=== PATIENT | female | born 1970 | race Caucasian/White ===

== ENCOUNTER → 2022-06-22 09:15 | Outpatient (CLI) | payer OTHER, SELFPAY ==
[2022-06-22 10:12] LABS: Add Manual Diff / Slide Review NO; Basophils Absolute Auto 0 /uL (0-100); Basophils Percent Auto 0.5 % (0-2); Eosinophils Absolute Auto 100 /uL (0-450); Hematocrit 38.5 % (36-46); Hemoglobin 12.9 g/dL (12.0-16.0); Lymphocytes Absolute Auto 2100 /uL (1100-4500); Lymphocytes Percent Auto 33.5 % (25-40); Mean Corpuscular HGB Conc 33.4 % (30-36); Mean Corpuscular Hemoglobin 28.6 PG (26-34); Mean Corpuscular Volume 85.4 fL (80-100); Monocytes Absolute Auto 600 /uL (0-900); Monocytes Percent Auto 9.2 % (3-14); Neutrophils Absolute Auto 3500 /uL (1500-7000); Neutrophils Percent Auto 54.8 % (50-75); Platelet Count 263 X10^3/uL (150-400); Red Blood Cell Count 4.51 X10^6/uL (4.0-5.2); Red Cell Distribution Width 13.8 % (11.6-14.8); White Blood Cell Count 6.3 X10^3/uL (4.5-11.0)
[2022-06-22 10:20] LABS: Hemoglobin A1C% w Est Avg Glu 7.8 % (4.0-6.0)
[2022-06-22 10:31] LABS: Alanine Aminotransferase 35 IU/L (<35); Albumin 4.2 g/dL (3.5-5.0); Albumin Globulin Ratio 1.3 (1.0-2.8); Alkaline Phosphatase 85 U/L (38-126); Aspartate Aminotransferase 23 IU/L (14-36); BUN Creatinine Ratio 21.4 (6-22); Bilirubin Total 0.3 mg/dL (0.2-1.3); Blood Urea Nitrogen 15 mg/dL (7-17); Calcium 8.8 mg/dL (8.4-10.2); Carbon Dioxide 25 mmol/L (22-32); Chloride 104 mmol/L (98-107); Cholesterol 181 mg/dL (140-199); Estimated Glomerular Filt Rate > 60 mL/min (>60); Globulin 3.2 g/dL (1.7-4.1); Glucose 169 mg/dL (70-100); HDL Cholesterol 46 mg/dL (40-60); HEMOLYSIS < 15 (0-50); LDL Cholesterol Calculated 100 mg/dL (<100); Potassium 3.9 mmol/L (3.4-5.1); Sodium 138 mmol/L (137-145); Total Protein 7.4 g/dL (6.3-8.2); Triglycerides 175 mg/dL (35-150)
[2022-06-22 10:42] LABS: Erythrocyte Sedimentation Rate 16 MM/HR (0-20)
[2022-06-22 11:01] LABS: TSH w/ Reflex to FT4 3.29 uIU/mL (0.47-4.68)
== END ==
PROVIDERS: PCP Family Medicine; Referring Provider Family Medicine; Visit Provider Family Medicine
DX: E11.9 Type 2 diabetes mellitus without complications (principal); E78.00 Pure hypercholesterolemia, unspecified; F34.1 Dysthymic disorder; I10 Essential (primary) hypertension; M32.9 Systemic lupus erythematosus, unspecified; Z00.00 Encounter for general adult medical examination without abnormal findings; Z80.3 Family history of malignant neoplasm of breast
CPT/HCPCS: 36415; 80053; 80061; 83036; 84443; 85025; 85651

== ENCOUNTER → 2022-07-13 09:38 | Outpatient (CLI) | payer OTHER, SELFPAY ==
--- NOTE | 2022-07-13 09:39 | DI.MG.S_ITS ---
BILATERAL DIGITAL SCREENING MAMMOGRAM 3D/2D WITH CAD: 07/13/2022 CLINICAL: Routine screening. Family history of breast cancer. No prior exams were available for comparison. There are scattered areas of fibroglandular density in both breasts (category b / 25%-50% glandular tissue). Current study was also evaluated with a Computer Aided Detection (CAD) system. There is a biopsy clip in the left breast. No significant masses, calcifications, or other findings are seen in either breast. IMPRESSION: NEGATIVE There is no mammographic evidence of malignancy. A 1 year screening mammogram is recommended. This exam was interpreted at Station ID: [id number]. NOTE: For mammograms, a report in lay terms will be sent to the patient. Approximately 15% of breast malignancies will not be visualized mammographically. In the management of a palpable breast mass, a negative mammogram must not discourage biopsy of a clinically suspicious lesion. Electronically Signed By: Too Guerrero M.D., jr/eliud:07/13/2022 14:35:29 letter sent: Normal Exam ACR BI-RADS Category 1: Negative [id number]
[2022-07-13 10:26] LABS: Hemoglobin A1C% w Est Avg Glu 8.1 % (4.0-6.0)
[2022-07-13 10:43] LABS: Alanine Aminotransferase 35 IU/L (<35); Albumin 4.2 g/dL (3.5-5.0); Albumin Globulin Ratio 1.3 (1.0-2.8); Alkaline Phosphatase 90 U/L (38-126); Aspartate Aminotransferase 22 IU/L (14-36); BUN Creatinine Ratio 27.4 (6-22); Bilirubin Total 0.4 mg/dL (0.2-1.3); Blood Urea Nitrogen 20 mg/dL (7-17); Calcium 9.6 mg/dL (8.4-10.2); Carbon Dioxide 26 mmol/L (22-32); Chloride 100 mmol/L (98-107); Estimated Glomerular Filt Rate > 60 mL/min (>60); Globulin 3.3 g/dL (1.7-4.1); Glucose 233 mg/dL (70-100); HEMOLYSIS < 15 (0-50); Potassium 4.5 mmol/L (3.4-5.1); Sodium 135 mmol/L (137-145); Total Protein 7.5 g/dL (6.3-8.2)
[2022-07-13 10:47] LABS: Creatinine Urine Random 89.4 mg/dL
[2022-07-13 10:49] LABS: Microalbumi Creatinin Ratio Ur 16.7 ug/mg CR (<30); Microalbumin Urine Random 1.5 mg/dL (0-1.6)
== END ==
PROVIDERS: PCP Family Medicine; Referring Provider Family Medicine; Visit Provider Family Medicine
DX: Z12.31 Encounter for screening mammogram for malignant neoplasm of breast (principal); Z80.3 Family history of malignant neoplasm of breast; Z00.00 Encounter for general adult medical examination without abnormal findings; M32.9 Systemic lupus erythematosus, unspecified; I10 Essential (primary) hypertension; F34.1 Dysthymic disorder; E11.9 Type 2 diabetes mellitus without complications; E78.00 Pure hypercholesterolemia, unspecified
CPT/HCPCS: 36415; 77063; 77067; 80053; 82043; 82570; 83036

== ENCOUNTER → 2022-10-26 15:11 | Outpatient (CLI) | payer OTHER, SELFPAY ==
--- NOTE | 2022-10-26 15:12 | DI.MRI.S_ITS ---
PROCEDURE: MR CERVICAL SPINE WO CON INDICATIONS: Chronic Lumbar/Cervical Stenosis TECHNIQUE: Noncontrast sagittal T1 spin echo and T2 fast spin echo, sagittal STIR, foraminal oblique sagittal T2 fast spin echo, and axial gradient echo or T2 fast spin echo through the cervical spine. COMPARISON: None. FINDINGS: Image quality: Excellent. Alignment and Curvature: There is normal bony alignment. Bone Marrow: Marrow demonstrates normal overall signal. Spinal Cord: Visualized spinal cord has normal size and signal. No cerebellar tonsillar herniation. Paraspinous Soft Tissues: No paravertebral masses. Prevertebral soft tissues are normal in thickness. C2-C3: Normal appearance. C3-C4: Normal appearance. C4-C5: Normal appearance. C5-C6: Mild disc space narrowing and hypertrophic uncovertebral joints results in mild central stenosis. Moderate left and mild right foraminal stenosis. C6-C7: Disc space narrowing and small central protrusion touches the ventral surface of the cord without cord indentation. Mild central stenosis. No foraminal stenosis. C7-T1: Normal appearance. IMPRESSION: Multilevel degenerative disc disease and arthropathy results in varying degrees of central and foraminal stenosis including moderate left foraminal stenosis C5-6 and small central protrusion at C6-7 Approved by: Walter Olmedo M.D. on 10/26/2022 at 18:56
--- NOTE | 2022-10-26 15:12 | DI.MRI.S_ITS ---
PROCEDURE: MR LUMBAR SPINE WO CON INDICATIONS: Chronic Lumbar/Cervical Stenosis TECHNIQUE: Noncontrast sagittal T1 spin echo and T2 fast echo, sagittal STIR, and T2 fast spin echo through the lumbar spine. In cases with scoliosis, additional coronal T2 fast spin echo may be performed. COMPARISON: None. FINDINGS: Image quality: Excellent. Alignment and Curvature: There is normal bony alignment. Bone Marrow: Marrow is of normal overall signal. No acute vertebral body compression fractures. Spinal Cord: Conus medullaris terminates at the L1 level. Visualized cord demonstrates normal signal and size. Paraspinous Soft Tissues: No paravertebral masses. T12-L1: Normal appearance. L1-L2: Normal appearance. L2-L3: Disc height is maintained. Mild asymmetric right disc bulge without central or foraminal stenosis L3-L4: Mild disc space narrowing present. Short high-intensity zone in the posterior annulus reflects annular fissure or tear. Mild circumferential disc bulge. No central or foraminal stenosis L4-L5: Disc height is maintained. No disc bulge present. Mild right hypertrophic facet joint. No central or foraminal stenosis. L5-S1: Normal appearance. IMPRESSION: Mild degenerative disc disease and arthropathy without significant central or foraminal stenosis throughout the exam Approved by: Walter Olmedo M.D. on 10/26/2022 at 18:52
== END ==
PROVIDERS: PCP Family Medicine; Referring Provider Family Medicine; Visit Provider Family Medicine
DX: M48.02 Spinal stenosis, cervical region (principal); M47.812 Spondylosis without myelopathy or radiculopathy, cervical region; M50.323 Other cervical disc degeneration at C6-C7 level; M48.061 Spinal stenosis, lumbar region without neurogenic claudication; M51.36 Other intervertebral disc degeneration, lumbar region; M47.816 Spondylosis without myelopathy or radiculopathy, lumbar region
CPT/HCPCS: 72141; 72148

== ENCOUNTER → 2022-11-30 09:04 | Outpatient (CLI) | payer OTHER, SELFPAY ==
--- NOTE | 2022-11-30 09:06 | DI.RAD.S_ITS ---
PROCEDURE: XR LUMBAR SPINE MIN 4V INDICATIONS: low back pain TECHNIQUE: 5 views of the lumbar spine were acquired, including bilateral oblique views. COMPARISON: None. FINDINGS: Bones: 5 nonrib-bearing vertebrae are present. There is normal bony alignment. No vertebral body compression fractures. No suspicious bony lesions. Mild degenerative change is present throughout the lumbar spine including intervertebral disc space narrowing and osteophytosis. Soft tissues: Overlying bowel gas pattern is normal. No suspicious soft tissue calcifications. Oblique images: No pars defects. IMPRESSION: Mild degenerative change. No spondylolysis or spondylolisthesis. Dictated by: Trina Anderson M.D. on 11/30/2022 at 12:58 Approved by: Trina Anderson M.D. on 11/30/2022 at 13:23
--- NOTE | 2022-11-30 09:06 | DI.RAD.S_ITS ---
PROCEDURE: XR CERVICAL SPINE 4V OR 5V INDICATIONS: neck pain TECHNIQUE: 5 views of the cervical spine acquired. COMPARISON: None. FINDINGS: Bones: No fractures or dislocations to the C7-T1 level. Moderate neural foraminal stenosis is present on the left at C5-6 and severe neural foraminal stenosis is present on the right at C5-6. No other foraminal narrowing. Mild degenerative change is present at C5-6 including intervertebral disc space narrowing and osteophytosis. Soft tissues: No prevertebral soft tissue swelling. IMPRESSION: 1. Degenerative changes at C5-6 including osteophytosis, disc space narrowing and foraminal stenosis. Dictated by: Trina Anderson M.D. on 11/30/2022 at 12:55 Approved by: Trina Anderson M.D. on 11/30/2022 at 12:57
== END ==
PROVIDERS: PCP Family Medicine; Referring Provider Anesthesiology; Visit Provider Anesthesiology
DX: M47.812 Spondylosis without myelopathy or radiculopathy, cervical region (principal); M48.02 Spinal stenosis, cervical region; M47.816 Spondylosis without myelopathy or radiculopathy, lumbar region; M79.7 Fibromyalgia; E11.42 Type 2 diabetes mellitus with diabetic polyneuropathy; M79.601 Pain in right arm; M54.2 Cervicalgia; M54.6 Pain in thoracic spine; M54.50 Low back pain, unspecified; M54.9 Dorsalgia, unspecified
CPT/HCPCS: 72050; 72110; 99214

== ENCOUNTER 2022-12-10 07:32 | Inpatient (IN) | payer OTHER, SELFPAY ==
[2022-12-07 15:08] VITALS: BMI 35.3
[2022-12-10] VITALS (15 sets, daily range): BP systolic 108–131; BP diastolic 53–86; PULSE 68–85; RESP 14–21; TEMP 35.9–36.5; O2SAT 92–99; BMI 35.3
[2022-12-10] MEDS: LACTATED RINGERS 1,000 ML 42 ML IV (08:02)
--- NOTE | 2022-12-10 08:28 | PM.PREOP ---
Pre-operative Note COVID-19 COVID-19 status: Not tested Criteria for continued procedure: Non-surgical alternatives not available or appropriate per current SOC Interval Note History & Physical reviewed/Exam performed by Physician: Yes Changes to H&P: No
[2022-12-10] MEDS: CEFAZOLIN 2 GM/100 ML PREMIX 100 ML IV (08:45)
--- NOTE | 2022-12-10 09:18 | SUR.OPER ---
Lithotomy on padded OR bed, head on pillow, arms secured on padded arm boards at <90 degrees abduction. Legs secured in padded yellow fins stirrups.
[2022-12-10] MEDS: BUPIVACAINE 0.5% W/ EPI (PF) 30 ML VIAL INJ (09:23)
--- NOTE | 2022-12-10 11:30 | SUR.PHASEI ---
Spoke with Kevin Loyd CRNA as pt CBG in PACU 211. See new order for Regular Insulin coverage. Dr Lopez at bedside at this time to check on patient. Updated on CBG and plan for insulin. Pt continues to deny pain and nausea.
[2022-12-10] MEDS: INSULIN REGULAR 100 UNIT/ML 3 ML VIAL IV (11:42)
--- NOTE | 2022-12-10 11:43 | P.OP_ITS ---
Operative Date/Time/Diagnoses Date of procedure: 12/10/22 Time of procedure: 09:10 Pre-op diagnosis: Enterocele rectocele Post-op diagnosis: same Procedure & Clinicians Procedure: Procedures Operation Date: 12/10/22 09:00 Actual Procedure Side Surgeon p Laparoscopic enterocele repair/ Wes Dominguez MD s Posterior Colporrhaphy w. Perineoplasty Wes Dominguez MD Indications: Sarah is a 52-year-old 5 para 3 last menstrual period in 2002 prior to an abdominal hysterectomy who presents for evaluation what is believed to be a rectocele/enterocele.? Following her hysterectomy the patient developed a cystocele and stress urinary incontinence and underwent a lynx sling anterior repair in 2020.? For anterior bulging has resolved but her incontinence persists.? Her incontinence is mixed but results in her having to wear an incontinence pad every day.? She does not experience obstipation and does not have to stent vaginally to effectively defecate.? Over the last couple of years the patient has developed progressive vaginal bulging and has also developed rectal bleeding on occasion with her bowel movements.? She denies constipation however.? In addition she is also noted occasional stool incontinence over the last 2-3 months.? Patient has history of spinal stenosis in the C6 area but has no lower extremity weakness/hypaesthesia.? She does have left-sided peripheral neuropathy due to her diabetes which is reasonably well controlled with the most recent A1c of 7.2.? Her diabetes has been present for at least 3 years and she is currently on glipizide and Actos.? Patient has not had a colonoscopy recently and certainly not since she started noticing blood in her stools.? Patient has had 1 section for twins and then 2 spontaneous vaginal births with her largest being 6 lb 7 oz..? She was recently seen by Urology who is evaluating her for her incontinence symptoms and is referred by Dr. Sarbjit Gray due to the findings of a rectocele/enterocele. Options for management reviewed including the option of expectant management for now to observe whether or not the enterocele/rectocele become mopre advanced over time but patient is concerned that the rectocele/enterocele will progress rapidly as she experienced with the cystocele.? As a result she she is scheduled for for laparoscopic enterocele repair and posterior colporrhaphy with perineoplasty.? She presents today for p her scheduled surgery. Surgeon: Wes Dominguez Heat Curer: Sandra Yu Anesthesia Type: General Operative Notes Findings: Deep enterocele, primarily right-sided. The rectocele is stage 1-2 also primarily right-sided, likely as a result of enterocele above. Closure Type: primary Specimen(s): none Applied: catheter Estimated blood loss (mL): 75 Blood products transfused: none Procedure in detail: With the patient under satisfactory general anesthesia in the modified dorsal lithotomy position, the perineum, vagina, and abdomen were prepped and draped in the usual manner for laparoscopy and vaginal surgery. A pre-surgical safety time-out was then taken in accordance with [facility] Main OR protocols. Doshi catheter was inserted in the bladder and a sponge stick inserted in the vagina. The umbilicus was infiltrated with half Marcaine epinephrine and a 1 cm vertical incision of the skin of the inferior umbilicus was made. A Veress needle was then used insufflate the abdominal cavity and once appropriately insufflated, a 5 mm trocar and sleeve were introduced through the umbilical incision. Proper placement of the port in the abdominal cavity was confirmed and the pneumoperitoneum maintained with maximum pressure 15 mmHg. A 2nd and 3rd 5 mm port were placed in the mid quadrant on the left and right side Odette 4th 5 mm port was placed in the right lower quadrant. Using a 4 puncture technique the pelvis and visualized with the findings as noted above. Adhesions involving the small bowel and the right pelvic sidewall were taken down with sharp and blunt dissection. Once the adhesions have been taken down the pelvis could be fully visualized and the ureters were on both sides. Using a Halban technique permanent stitches of 0 Ethibond were used to longitudinally plicate posterior cul-de-sac incorporating both the right and left uterosacral ligaments and reattaching them to the vaginal cuff which was elevated with an EEA Sizer. An additional 0 Ethibond stitch was used to bring the uterosacral ligaments together in the midline to fully obliterate posterior cul-de-sac. Inspection of the ureters was performed again and there were seen to be well away from all plication stitches and freely peristalsing. The pneumoperitoneum was then vented and laparoscopy ports removed. The laparoscopy port incisions were all then closed with 4 O Monocryl using inverted interrupted stitches. Skin glue was applied to the incisions and appropriate dressings applied. Attention was then turned to vaginal portion of the case. Examination of the vaginal canal showed there had been marked reduction in the enterocele/rectocele complex. The introitus was infiltrated with 0.5% Marcaine with epinephrine and infiltration of posterior vaginal mucosa was carried out all the way to the apex of the vagina. Sandra-shaped incision of the introital skin was made and a longitudinal incision of the posterior vaginal mucosa was carried out. Underl lula tissues were dissected free from the vaginal mucosa using a combination of both sharp and blunt dissection. A two-layer plication of the underlying posterior wall tissues and levators was then carried out for the full length of the incision. Redundant portions of vaginal skin were then excised and the incision closed with 2-0 Vicryl in a running interlocking stitch all the way down to the level of the perineal body. A moistened vaginal pack was then inserted in the vagina and the patient was awakened from anesthesia. She was then transferred to the PACU for a period of observation and recovery after having tolerated the procedure well. Complications: none Post-operative Condition: stable Disposition: PACU Plan for aftercare: Routine postoperative care. Doshi will remain in place until removal of the vaginal pack at 6:00 a.m. on 12/11/2022.
[2022-12-10] MEDS: KETOROLAC 30 MG/ML VIAL IV ×3 (11:52→23:31)
[2022-12-10] MEDS: ONDANSETRON 4 MG/2 ML INJ IV (11:52)
[2022-12-10] MEDS: LACTATED RINGERS 1,000 ML 100 ML IV ×3 (11:59→16:22)
[2022-12-10] MEDS: ACETAMINOPHEN IV 1,000 MG/100 ML VIAL 400 MG IV (12:00)
--- NOTE | 2022-12-10 12:02 | SUR.PHASEI ---
Dr Dominguez notified of patient c/o nausea and that medicated with zofran and toradol. See new order for IV APAP.
--- NOTE | 2022-12-10 12:21 | SUR.PHASEI ---
Transferred to room 204. SBAR report to Y Day RN. With 1 belongings bag. Nausea resolved.
--- NOTE | 2022-12-10 12:23 | PC.NURSE ---
Day shift: In room from PACU at approx 1220. VS WNL. Placed on 2L NC and at 99%. Desats on RA at this time. The 4 lap sites are CDI. Oriented to room and call light. Denies any pain or nausea at this time. IV infusing per MAR and the PACU bag of IV Tylenol is complete. WIll continue with post-op plan of care. Earl is patent and draining clear yellow to gravity. Be alarm is on for safety.
[2022-12-10] MEDS: METFORMIN HCL 500 MG TABLET 1000 MG PO (16:52)
[2022-12-10] MEDS: ATORVASTATIN 20 MG TABLET PO (20:40)
[2022-12-10] MEDS: DOCUSATE 100 MG CAPSULE 200 MG PO (20:40)
[2022-12-10] MEDS: AMITRIPTYLINE 25 MG TABLET PO (20:40)
[2022-12-10] MEDS: ACETAMINOPHEN 325 MG TABLET 650 MG PO (20:43)
[2022-12-11] MEDS: LACTATED RINGERS 1,000 ML 100 ML IV (03:18)
[2022-12-11 04:15] VITALS: BP 111/59; PULSE 75; RESP 16; TEMP 36.2; O2SAT 95
[2022-12-11] MEDS: ACETAMINOPHEN 325 MG TABLET 650 MG PO (05:27)
[2022-12-11] MEDS: KETOROLAC 30 MG/ML VIAL IV (05:28)
[2022-12-11] MEDS: PANTOPRAZOLE DR 40 MG TABLET PO (06:00)
[2022-12-11 06:13] LABS: Add Manual Diff / Slide Review NO; Basophils Absolute Auto 0 /uL (0-100); Basophils Percent Auto 0.3 % (0-2); Eosinophils Absolute Auto 0 /uL (0-450); Eosinophils Percent Auto 0.1 % (2-4); Hematocrit 32.6 % (36-46); Hemoglobin 10.9 g/dL (12.0-16.0); Lymphocytes Absolute Auto 2300 /uL (1100-4500); Lymphocytes Percent Auto 16.3 % (25-40); Mean Corpuscular HGB Conc 33.5 % (30-36); Mean Corpuscular Hemoglobin 28.8 PG (26-34); Monocytes Absolute Auto 1000 /uL (0-900); Monocytes Percent Auto 7.4 % (3-14); Neutrophils Absolute Auto 10700 /uL (1500-7000); Neutrophils Percent Auto 75.9 % (50-75); Platelet Count 255 X10^3/uL (150-400); Red Blood Cell Count 3.79 X10^6/uL (4.0-5.2); Red Cell Distribution Width 13.4 % (11.6-14.8)
--- NOTE | 2022-12-11 06:23 | PC.NURSE ---
0600 Vaginal packing & Doshi discontinued, tolerated vaginal packing & catheter well.
[2022-12-11] MEDS: METFORMIN HCL 500 MG TABLET 1000 MG PO (08:12)
[2022-12-11] MEDS: DOCUSATE 100 MG CAPSULE 200 MG PO (08:12)
[2022-12-11 08:46] VITALS: BP 131/76; PULSE 80; RESP 18; TEMP 36.4; O2SAT 96
--- NOTE | 2022-12-11 10:48 | P.DS_ITS ---
History of Present Illness History of Present Illness Date Patient Seen: 12/11/22 Time Patient Seen: 10:48 Chief complaint: Enterocele, rectocele Narrative: Sarah is a 52-year-old 5 para 3 last menstrual period in 2002 prior to an abdominal hysterectomy who presents for evaluation what is believed to be a rectocele/enterocele.? Following her hysterectomy the patient developed a cystocele and stress urinary incontinence and underwent a lynx sling anterior repair in 2020.? For anterior bulging has resolved but her incontinence persists.? Her incontinence is mixed but results in her having to wear an incontinence pad every day.? She does not experience obstipation and does not have to stent vaginally to effectively defecate.? Over the last couple of years the patient has developed progressive vaginal bulging and has also developed rectal bleeding on occasion with her bowel movements.? She denies constipation however.? In addition she is also noted occasional stool incontinence over the last 2-3 months.? Patient has history of spinal stenosis in the C6 area but has no lower extremity weakness/hypaesthesia.? She does have left-sided peripheral n europathy due to her diabetes which is reasonably well controlled with the most recent A1c of 7.2.? Her diabetes has been present for at least 3 years and she is currently on glipizide and Actos.? Patient has not had a colonoscopy recently and certainly not since she started noticing blood in her stools.? Patient has had 1 section for twins and then 2 spontaneous vaginal births with her largest being 6 lb 7 oz..? She was recently seen by Urology who is evaluating her for her incontinence symptoms and is referred by Dr. Sarbjit Gray due to the findings of a rectocele/enterocele. Options for management reviewed including the option of expectant management for now to observe whether or not the enterocele/rectocele become mopre advanced over time but patient is concerned that the rectocele/enterocele will progress rapidly as she experienced with the cystocele.? As a result she she is scheduled for for laparoscopic enterocele repair and posterior colporrhaphy with perineoplasty.? She presents today for her scheduled surgery. Discharge Providers Provider Date of admission: 12/10/22 07:32 Discharge Date: 12/11/22 Primary care physician: Wander Salcedo, Discharge provider: Wes Dominguez MD Summary Hospital Course Discharge Diagnosis: Enterocele Rectocele Status post laparoscopic enterocele repair, and posterior colporrhaphy with perineoplasty Hospital Course: Sarah Alvarado was admitted on 12/10/2022 and underwent an uneventful laparoscopic enterocele repair with posterior colporrhaphy and perineoplasty. Details of the procedure well summarized on my operative note of that date. Following surgery the patient has done extremely well with prompt return of bowel and bladder function, she is remained afebrile and normotensive throughout her postoperative course, she is had prompt return of bowel and bladder function, she is ambulating independently, and her pain is well-controlled with oral pain medications. She will be discharged at this time to home in an afebrile normotensive condition after counseling regarding precautionary symptoms, limitations activity, medications, and plans for follow-up which will be in 2 weeks. She will use [id number] pain medications and resume all of her preoperative medications. Status at Discharge Cognitive/behavioral status at discharge: oriented Functional status at discharge: independent ambulation Overall status at discharge: patient is progressing back to baseline Time Spent with Patient Time spent: Less than 30 minutes Exam Vital Signs (past 8 hours): - 12/11/22 04:15 12/11/22 08:46 Temperature 97.2 F L 97.6 F Pulse Rate 75 80 Respiratory Rate 16 18 Blood Pressure 111/59 L 131/76 Pulse Oximetry 95 96 Oxygen Flow Rate 0 0 Oxygen Delivery Method Room Air Oxygen Flow Rate 0 Const General: cooperative and comfortable Nutritional Appearance: average body habitus Orientation: alert and oriented x3 HENMT Head: normal to inspection, atraumatic and abrasion Ears: hearing grossly normal bilaterally Face and sinus: face symmetric Eyes General: appearance normal, both eyes and all related structures Conjunctivae: conjunctivae normal Sclera: sclerae normal EOM: EOM intact bilaterally Neck Neck: normal visual inspection Resp Effort & Inspection: normal respiratory effort and able to speak in complete sentences Auscultation: clear to auscultation bilaterally Cardio Rate: regular rate Rhythm: regular rhythm Heart Sounds: S1 normal, S2 normal and no murmurs GI Inspection: normal to inspection and incision (Surgical dressings clean and dry) Palpation: soft, no hepatosplenomegaly and tender (Mild, diffuse postsurgical tenderness) External Female Exam: other (No significant bleeding noted, vaginal pack r emoved) Extrem General: no calf tenderness Psych Appearance: grossly normal Mental Status: mental status grossly normal Speech and Movement: speech and movement normal Mood: congruent mood Affect: normal affect Attitude: cooperative Thought Process: normal Thought Content: normal Judgment: judgment good Objective Labs 12/11/22 05:40 Labs: Laboratory Results - last 24 hr 12/11/22 05:40 WBC 14.0 H RBC 3.79 L Hgb 10.9 L Hct 32.6 L MCV 86.0 MCH 28.8 MCHC 33.5 RDW 13.4 Plt Count 255 Neut % (Auto) 75.9 H Lymph % (Auto) 16.3 L [place] % (Auto) 7.4 Eos % (Auto) 0.1 L Baso % (Auto) 0.3 Neut # (Auto) 24576 H Lymph # (Auto) 2300 [place] # (Auto) 1000 H Eos # (Auto) 0 Baso # (Auto) 0 PFSH Medical History (Updated 12/07/22 @ 15:13 by Millie Lea RN) Cervicalgia Cystocele Depression Diabetes (~2019) Diabetic peripheral neuropathy Dorsalgia Essential tremor Family history of breast cancer Fibromyalgia History of stress incontinence History of tobacco use Hyperlipidemia Hypertension Lupus Migraine aura occurring with and without headache Myofascial pain Preventative health care Prolapse of female pelvic organs Right arm pain Seasonal allergic rhinitis Thoracic back pain Type 2 diabetes mellitus Surgical History History of hysterectomy for benign disease Social History household members: family Smoking Status: Former smoker alcohol intake: never Discharge Assessment & Plan Assessment and Plan Assessment: Status post laparoscopic enterocele repair and posterior colporrhaphy with perineoplasty Plan of Treatment: Patient will be discharged to routine postoperative care with follow-up planned for 2 weeks postop. Discharge Plan Discharge Plan Patient Disposition: Home Provider Discharge Comment: Please review the written instructions you received when you were discharged from the hospital. Your follow-up appointment is scheduled for 2 weeks after your surgery and I look forward to seeing you then. If however in the meanwhile you have any issues, concerns, or questions, please contact me either through the office phone at [phone], or via the patient portal. Discharge orders & Medications Prescriptions: Continued atorvastatin 20 mg tablet 20 mg PO BEDTIME Qty: 90 3RF rizatriptan [Maxalt] 10 mg tablet See Rx Instructions PO .COMPLEX Qty: 30 5RF Rx Instructions: take 1 tab at onset of headache; if no relief may repeat 1 tab after at least 2 hrs; max = 3 tabs/24 hr PO ondansetron 8 mg tablet,disintegrating 8 mg PO Q12H PRN (Reason: nausea and vomiting) Qty: 30 3RF propranolol 20 mg tablet 20 mg PO BID Qty: 180 3RF amitriptyline 25 mg tablet 25 mg PO BID Qty: 180 3RF pioglitazone 15 mg tablet 15 mg PO DAILY Qty: 90 3RF esomeprazole magnesium [Nexium] 40 mg capsule,delayed release(DR/EC) 40 mg PO DAILY sertraline 50 mg tablet 50 mg PO DAILY vitamin D3-vit K1-vit MK4-MK7 50-500-1,500 mcg capsule 1 cap PO DAILY Patient Comments: otc omega 1-lvj-iig-fish oil [Fish Oil] 60-90-500 mg capsule 1 cap PO DAILY metformin 500 mg tablet 1,000 mg PO BID multivitamin Tablet 1 tab PO DAILY pregabalin [Lyrica] 75 mg capsule 75 mg PO BID Qty: 90 1RF Rx Instructions: One capsule b.i.d. for 7 days If tolerated, increase to 2 capsules b.i.d. Follow up/Referrals: Wander Salcedo DO [Primary Care Provider] - Wes Dominguez MD [Physician] - Discharge Health Status Multidrug resistant organism: No MDRO Diet/Activity/Treatments Diet: Diet as Tolerated Activity: As tolerated Other treatments: [id number] Tylenol and/or ibuprofen may be used for pain relief. Bftk-fwa-ydlydgo stool softeners and/or MiraLax may be used as needed for constipation. Skin/Wound/Dressing Care Report to your healthcare provider any signs of infection, such as:: chills, fe star, increased pain, unusual drainage and unusual redness Dressing: Dressings should be removed on the morning of 12/12/2022 Visit Report/Discharge Packet Instructions: DI for Laparoscopy Stand Alone Forms: Surgery Discharge Discharge Data Primary Care Provider: Wander Salcedo Quality VTE Deep Vein Thrombosis/Pulmonary Embolism Present on Admission: No
--- NOTE | 2022-12-11 11:08 | PC.NURSE ---
Day shift: Paperwork signed and all questions answered. Left unit at approx 1130 via WC. Family member is driving Pt home. No new MD scripts. Pt has all personal belongings. The 4 lap sites remain CDI. Pt has voided post Doshi removal with minimal residual per bladder scan.
== END 2022-12-11 11:47 | disposition home or self-care (01) | DRG 748 ==
PROVIDERS: Admitting Provider Obstetrics & Gynecology; PCP Family Medicine; Referring Provider Obstetrics & Gynecology; Visit Provider Obstetrics & Gynecology
PROC: 0JQC0ZZ Repair Pelvic Region Subcutaneous Tissue and Fascia, Open Approach (ICD-10-PCS; CPT 49320; principal; 2022-12-10 09:00)
PROC: 0JQC0ZZ Repair Pelvic Region Subcutaneous Tissue and Fascia, Open Approach (ICD-10-PCS; 2022-12-10 09:00)
DX: N81.5 Vaginal enterocele (principal); N81.6 Rectocele; E11.40 Type 2 diabetes mellitus with diabetic neuropathy, unspecified; E78.5 Hyperlipidemia, unspecified; G43.909 Migraine, unspecified, not intractable, without status migrainosus; I10 Essential (primary) hypertension; F32.A Depression, unspecified; Z87.891 Personal history of nicotine dependence; Z79.84 Long term (current) use of oral hypoglycemic drugs
CPT/HCPCS: 36415; 57250; 58999; 82962; 85025; J0131; J0690; J1100; J1200; J1885; J2250; J2405; J2704; J3010

== ENCOUNTER → 2022-12-24 13:43 | Outpatient (CLI) | payer OTHER, SELFPAY ==
[2022-12-10 12:12] VITALS: BMI 35.3
== END ==
PROVIDERS: PCP Family Medicine; Visit Provider Obstetrics & Gynecology
DX: R30.0 Dysuria (principal)
CPT/HCPCS: 87077; 87086; 87147

== ENCOUNTER → 2023-01-04 09:31 | Outpatient (CLI) | payer OTHER, SELFPAY ==
[2022-12-10 12:12] VITALS: BMI 35.3
[2023-01-04 11:10] LABS: Add Manual Diff / Slide Review NO; Basophils Absolute Auto 0 /uL (0-100); Basophils Percent Auto 0.6 % (0-2); Eosinophils Absolute Auto 200 /uL (0-450); Hematocrit 35.8 % (36-46); Hemoglobin 12.1 g/dL (12.0-16.0); Lymphocytes Absolute Auto 2500 /uL (1100-4500); Lymphocytes Percent Auto 37.8 % (25-40); Mean Corpuscular HGB Conc 33.8 % (30-36); Mean Corpuscular Hemoglobin 29.1 PG (26-34); Monocytes Absolute Auto 600 /uL (0-900); Monocytes Percent Auto 9.8 % (3-14); Neutrophils Absolute Auto 3200 /uL (1500-7000); Neutrophils Percent Auto 48.8 % (50-75); Platelet Count 272 X10^3/uL (150-400); Red Blood Cell Count 4.17 X10^6/uL (4.0-5.2); Red Cell Distribution Width 13.7 % (11.6-14.8); White Blood Cell Count 6.6 X10^3/uL (4.5-11.0)
[2023-01-04 11:13] LABS: Hemoglobin A1C% w Est Avg Glu 6.9 % (4.0-6.0)
[2023-01-04 11:31] LABS: Alanine Aminotransferase 48 IU/L (<35); Albumin 4.2 g/dL (3.5-5.0); Albumin Globulin Ratio 1.3 (1.0-2.8); Alkaline Phosphatase 61 U/L (38-126); Aspartate Aminotransferase 34 IU/L (14-36); BUN Creatinine Ratio 24.7 (6-22); Bilirubin Total 0.3 mg/dL (0.2-1.3); Blood Urea Nitrogen 18 mg/dL (7-17); Calcium 9.4 mg/dL (8.4-10.2); Carbon Dioxide 23 mmol/L (22-32); Chloride 102 mmol/L (98-107); Cholesterol 194 mg/dL (140-199); Estimated Glomerular Filt Rate > 60 mL/min (>60); Globulin 3.2 g/dL (1.7-4.1); Glucose 129 mg/dL (70-100); HDL Cholesterol 49 mg/dL (40-60); HEMOLYSIS < 15 (0-50); LDL Cholesterol Calculated 112 mg/dL (<100); Potassium 4.3 mmol/L (3.4-5.1); Sodium 137 mmol/L (137-145); Total Protein 7.4 g/dL (6.3-8.2); Triglycerides 163 mg/dL (35-150)
[2023-01-04 11:48] LABS: Creatinine Urine Random 93.4 mg/dL
[2023-01-04 11:53] LABS: Microalbumi Creatinin Ratio Ur 29.9 ug/mg CR (<30); Microalbumin Urine Random 2.8 mg/dL (0-1.6)
== END ==
PROVIDERS: PCP Family Medicine; Referring Provider Family Medicine; Visit Provider Family Medicine
DX: E11.9 Type 2 diabetes mellitus without complications (principal); E78.5 Hyperlipidemia, unspecified; I10 Essential (primary) hypertension
CPT/HCPCS: 36415; 80053; 80061; 82043; 82570; 83036; 85025

== ENCOUNTER → 2023-04-27 14:31 | Outpatient (CLI) | payer OTHER, MEDICAID, SELFPAY ==
[2022-12-10 12:12] VITALS: BMI 35.3
--- NOTE | 2023-04-27 14:41 | DI.CT.S_ITS ---
PROCEDURE: CT ABDOMEN PELVIS W CON INDICATIONS: Rectal pain following pelvic surgery TECHNIQUE: After the administration of oral and IV contrast, axial sections were acquired from the lung bases to the pubic symphysis. Coronal and sagittal reformats were performed. For radiation dose reduction, the following was used: automated exposure control, adjustment of mA and/or kV according to patient size. COMPARISON: None. FINDINGS: Image quality: Excellent. Lung bases: Unremarkable. Heart: No significant findings. ABDOMEN: Liver: No solid mass. Gallbladder: Contracted. No gallstones. Biliary ducts: No biliary dilation. Pancreas: No ductal dilation. Spleen: Size is within normal limits. Adrenal Glands: No adrenal nodules. Kidneys and Ureters: No hydronephrosis. No solid mass. No complex renal cystic lesion which requires follow up. Stomach and Bowel: Normal small bowel and colonic caliber. Appearance of mild thickening in sigmoid colon. Mild diverticulosis without acute diverticulitis. Large amount of stool in colon and rectum. Peritoneum: No abnormal intraperitoneal fluid. No free air. Ventral Wall: No hernia. Abdominal Nodes: No retroperitoneal or mesenteric adenopathy by size criteria. Vessels: Aorta and inferior vena cava are normal in size. PELVIS: Pelvic Organs: Uterus is absent consistent with hysterectomy. Ovaries are not visualized. No pathological free-fluid in pelvis. Bladder: Unremarkable. Pelvic Nodes: No enlarged lymph nodes. Miscellaneous: No inguinal hernias are seen. Mild perianal stranding (series 4, image 44) Bones: Unremarkable. IMPRESSION: 1. Appearance of mild colonic wall thickening involving the sigmoid colon suggesting mild colitis. A differential diagnosis is artifact from inadequate distention. 2. Mild perirenal stranding, nonspecific. No perianal or rectal fluid collection. 3. Mild diverticulosis without diverticulitis. 4. A large amount of stool in colon. Dictated by: Opal Carter M.D. on 04/27/2023 at 16:32 Approved by: Opal Carter M.D. on 04/27/2023 at 18:35
[2023-04-27 15:25] LABS: Estimated Glomerular Filt Rate > 60 mL/min (>60)
== END ==
PROVIDERS: Radiology Diagnostic Radiology; PCP Family Medicine; Referring Provider Obstetrics & Gynecology; Visit Provider Obstetrics & Gynecology
DX: K62.89 Other specified diseases of anus and rectum (principal); K57.90 Diverticulosis of intestine, part unspecified, without perforation or abscess without bleeding
CPT/HCPCS: 36415; 74177; 82565; Q9967

== ENCOUNTER → 2023-09-06 09:46 | Outpatient (CLI) | payer OTHER, MEDICAID, SELFPAY ==
[2022-12-10 12:12] VITALS: BMI 35.3
--- NOTE | 2023-09-06 09:47 | DI.US.S_ITS ---
PROCEDURE: US ABDOMEN COMPLETE INDICATIONS: Epigastric pain TECHNIQUE: Real-time scanning was performed of the abdominal and retroperitoneal organs, with image documentation. COMPARISON: [facility], CT, CT ABDOMEN PELVIS W CON, 04/27/2023, 15:35. FINDINGS: Liver: The liver demonstrates moderately enlarged size. The liver demonstrates generalized mildly increased echogenicity. This decreases ultrasound sensitivity for detection of hepatic masses. Gallbladder: No findings of gallstones or sludge are seen. The gallbladder wall is not thickened, measuring 3 mm or less. No specific pericholecystic fluid is seen. The sonographic Fatima sign is negative. Biliary ducts: Intrahepatic bile ducts are non-dilated. Extrahepatic bile duct caliber measures 5 mm. Normal is 6-7 mm or less in diameter, or 10 mm or less post-cholecystectomy. Pancreas: Visualized portions of the pancreas are sonographically normal. Spleen: Spleen is normal in size and homogeneous in echotexture. Kidneys: Kidneys are normal in size and echotexture. Right kidney measures 10.8 cm long; left kidney measures 11.5 cm long. No hydronephrosis or nephrolithiasis. No solid masses. Aorta: Visualized aorta is normal in caliber at less than 3 cm. Iliacs: Not well seen, obscured by overlying bowel gas. IVC: Intrahepatic inferior vena cava is patent. Miscellaneous: No free abdominal fluid. IMPRESSION: The gallbladder demonstrates a normal sonographic appearance. No biliary dilatation is seen. The liver demonstrates increased echogenicity. This finding is nonspecific, yet it is most commonly attributed to fatty infiltration. Dictated by: Charles Serra M.D. on 09/06/2023 at 11:32 Approved by: Charles Serra M.D. on 09/06/2023 at 11:33
[2023-09-06 10:34] LABS: Hemoglobin A1C% w Est Avg Glu 6.9 % (4.0-6.0)
[2023-09-06 10:57] LABS: Alanine Aminotransferase 26 IU/L (<35); Albumin 4.4 g/dL (3.5-5.0); Albumin Globulin Ratio 1.5 (1.0-2.8); Alkaline Phosphatase 61 U/L (38-126); Aspartate Aminotransferase 21 IU/L (14-36); BUN Creatinine Ratio 24.4 (6-22); Bilirubin Total 0.4 mg/dL (0.2-1.3); Blood Urea Nitrogen 19 mg/dL (7-17); Calcium 9.3 mg/dL (8.4-10.2); Carbon Dioxide 30 mmol/L (22-32); Chloride 107 mmol/L (98-107); Cholesterol 184 mg/dL (140-199); Estimated Glomerular Filt Rate > 60 mL/min (>60); Glucose 138 mg/dL (70-100); HDL Cholesterol 53 mg/dL (40-60); HEMOLYSIS < 15 (0-50); LDL Cholesterol Calculated 102 mg/dL (<100); Potassium 4.4 mmol/L (3.4-5.1); Sodium 140 mmol/L (137-145); Total Protein 7.4 g/dL (6.3-8.2); Triglycerides 146 mg/dL (35-150)
[2023-09-06 11:22] LABS: TSH w/ Reflex to FT4 2.23 uIU/mL (0.47-4.68)
== END ==
PROVIDERS: PCP Family Medicine; Referring Provider Surgery; Visit Provider Surgery
DX: R10.13 Epigastric pain (principal); E11.9 Type 2 diabetes mellitus without complications; E78.5 Hyperlipidemia, unspecified; F32.A Depression, unspecified; I10 Essential (primary) hypertension
CPT/HCPCS: 36415; 76700; 80053; 80061; 83036; 84443

== ENCOUNTER → 2023-10-04 16:15 | Outpatient (CLI) | payer OTHER, MEDICAID, SELFPAY ==
[2022-12-10 12:12] VITALS: BMI 35.3
--- NOTE | 2023-10-04 | DI.MG.S_ITS ---
BILATERAL DIGITAL SCREENING MAMMOGRAM 3D/2D WITH CAD: 10/04/2023 CLINICAL: Routine screening. Family history of breast cancer. Comparison is made to exam dated: 07/13/2022 mammogram - [facility]. There are scattered areas of fibroglandular density in both breasts (category b / 25%-50% glandular tissue). Current study was also evaluated with a Computer Aided Detection (CAD) system. There is a biopsy clip in the left breast. No significant masses, calcifications, or other findings are seen in either breast. There has been no significant interval change. IMPRESSION: NEGATIVE There is no mammographic evidence of malignancy. A 1 year screening mammogram is recommended. Based on the Tyrer Cuzick model (a risk assessment model) the patient's lifetime risk is 13.9% and her 10 year risk is 3.9%. According to the ACR, ACS, and NCCN guidelines, an annual breast MRI exam along with mammogram is recommended if the patient's lifetime risk is 20% or greater. This exam was interpreted at Station ID: [id number]. NOTE: For mammograms, a report in lay terms will be sent to the patient. Approximately 15% of breast malignancies will not be visualized mammographically. In the management of a palpable breast mass, a negative mammogram must not discourage biopsy of a clinically suspicious lesion. Electronically Signed By: Trina landaverde/eliud:10/05/2023 16:13:31 letter sent: Normal Exam ACR BI-RADS Category 1: Negative [id number]
== END ==
PROVIDERS: PCP Family Medicine; Referring Provider Family Medicine; Visit Provider Family Medicine
DX: Z12.31 Encounter for screening mammogram for malignant neoplasm of breast (principal); Z80.3 Family history of malignant neoplasm of breast; R92.323 Mammographic fibroglandular density, bilateral breasts
CPT/HCPCS: 77063; 77067

== ENCOUNTER 2023-10-24 12:10 | Day surgery (SDC) | payer OTHER, MEDICAID, SELFPAY ==
[2022-12-10 12:12] VITALS: BMI 35.3
--- NOTE | 2023-10-24 | PATH_ITS ---
[facility] Accession Number: [id number] No. of containers..05 Tissue . 01 Material submitted: . PART A: stomach - ANTRUM PART B: stomach - GASTRIC PART C: stomach - FUNDUS PART D: sigmoid colon - SIGMOID POLYP PART E: rectum - RECTAL POLYP . 01 Diagnosis: Part A: ANTRUM: Gastric mucosa with mild chronic inflammation. No Helicobacter organisms identified. No intestinal metaplasia, dysplasia, or malignancy identified. . Part B: GASTRIC : Gastric mucosa with minimal chronic inflammation. No Helicobacter organisms identified on H/E stain. No intestinal metaplasia, dysplasia, or malignancy identified. . Part C: FUNDUS: Gastric mucosa with mild chronic inflammation. No Helicobacter organisms identified. No intestinal metaplasia, dysplasia, or malignancy identified. . Part D: SIGMOID POLYP: Hyperplastic polyp. . Part E: RECTAL POLYP: Hyperplastic polyp. [facility] 10/31/2023 1205 Local . 01 Comment: Parts A, C: An immunohistochemical stain was performed to evaluate for Helicobacter organisms and is negative. The control stains appropriately. * This test was developed and its performance characteristics determined by [facility]. It has not been cleared or approved by the U.S. Food and Drug Administration. The FDA has determined that such clearance or approval is not necessary. This test is used for clinical purposes. It should not be regarded as investigational or for research. . 01 Electronically signed: . Toy Swift MD, Pathologist NPI- [id number] . 01 Gross description: . A. Received in formalin with two patient identifiers and antrum biopsy, are three salcedo soft tissue fragments, 0.2 to 0.5 cm in greatest dimension. Submitted entirely in A1. . B. Received in formalin with two patient identifiers and gastric polyps, are salcedo soft tissue fragments, 0.4 cm in greatest dimension. Submitted entirely in B1. . C. Received in formalin with two patient identifiers and fundus, are four salcedo soft tissue fragments, 0.2 to 0.3 cm in greatest dimension. Submitted entirely in C1. . D. Received in formalin with two patient identifiers and sigmoid polyp, is a single salcedo soft tissue fragment, 0.8 cm in greatest dimension. Submitted entirely in D1. . E. Received in formalin with two patient identifiers and rectal polyp, is a single salcedo soft tissue fragment, 0.5 cm in greatest dimension. Submitted entirely in E1. ([id number]) /MRV 10/31/2023 1205 Local . 01 Pathologist provided ICD-10: K29.30, K29.50, K63.5 . 01 CPT . 498893, 681815, 425143, 787420, 988857, [id number] Specimen Comment: A courtesy copy of this report has been sent to [phone] Performed at: [address] [id number] MD Toy Swift MD Phone: [phone]
[2023-10-24 12:33] VITALS: BP 131/90; PULSE 83; RESP 17; TEMP 36.1; O2SAT 95
[2023-10-24] MEDS: LACTATED RINGERS 1,000 ML 42 ML IV (12:44)
--- NOTE | 2023-10-24 12:45 | P.HP_ITS ---
History of Present Illness History of Present Illness Date Patient Seen: 10/24/23 Time Patient Seen: 12:45 Chief complaint: SDC Narrative: Sarah is a 52-year-old woman has dysphagia and hematochezia. Please see the previous office note for more details. She did have an ultrasound which showed no abnormalities with her gallbladder. 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 Seasonal allergic rhinitis Hyperlipidemia Type 2 diabetes mellitus Surgical History History of hysterectomy for benign disease Social History household members: family Smoking Status: Former smoker alcohol intake: never Meds Home Medications and Allergies Home Medications Medication Instructions Recorded Confirmed Type ondansetron 8 mg disintegrating 8 mg PO Q12H PRN nausea and 06/11/22 10/24/23 Rx tablet vomiting #30 tabs pioglitazone 15 mg tablet 15 mg PO DAILY #90 tabs 09/07/22 10/24/23 Rx multivitamin 1 tab PO DAILY 11/30/22 10/06/23 History omega 6-wic-tbi-fish oil 60 mg-90 1 cap PO DAILY 11/30/22 10/06/23 History mg-500 mg capsule (Fish Oil) sertraline 50 mg tablet 100 mg PO DAILY 11/30/22 10/24/23 History vit D3 50 mcg-vitamin K1 500 1 cap PO DAILY deficiency 11/30/22 10/06/23 History mcg-MK4 1,500 mcg-MK7 180 mcg capsule esomeprazole magnesium 40 mg 40 mg PO DAILY #90 caps 06/28/23 10/24/23 Rx capsule,delayed release (Nexium) amitriptyline 25 mg tablet 25 mg PO BID #180 tabs 08/22/23 10/24/23 Rx propranolol 20 mg tablet 20 mg PO BID #180 tabs 08/22/23 10/24/23 Rx metformin 500 mg tablet 1,000 mg (2 x 500 mg) PO BID 08/25/23 10/24/23 Rx Diabetes 90 days #360 tabs rosuvastatin 5 mg tablet (Crestor) 5 mg PO DAILY #30 tabs 10/06/23 10/24/23 Rx valacyclovir 1 gram tablet 1,000 mg PO TID #21 tabs 10/06/23 10/06/23 Rx rizatriptan 10 mg tablet (Maxalt) See Rx Instructions PO .COMPLEX 10/24/23 10/24/23 History PRN Migraine Headache Allergies Allergy/AdvReac Type Severity Reaction Status Date / Time semaglutide [From Ozempic] Allergy Mild Nausea Verified 10/24/23 12:24 Exam Vital Signs (past 8 hours): - 10/24/23 12:33 Temperature 97.0 F L Pulse Rate 83 Respiratory Rate 17 Blood Pressure 131/90 Pulse Oximetry 95 Oxygen Delivery Method Room Air Oxygen Delivery Method Room Air Const General: No acute distress Resp Effort & Inspection: normal respiratory effort Assessment & Plan Assessment and plan (1) Dysphagia: Qualifiers: Dysphagia type: esophageal phase Qualified Code(s): R13.19 - Other dysphagia Status: Acute (2) Hematochezia: Status: Acute Plan Proceed with EGD and colonoscopy for dysphagia and hematochezia.
--- NOTE | 2023-10-24 13:57 | PM.OP.EC ---
Operative Date/Time/Diagnoses Date of procedure: 10/24/23 Time of procedure: 13:57 Pre-op diagnosis: Dysphagia and hematochezia Post-op diagnosis: same Procedure & Clinicians Study performed: EGD and colonoscopy Surgeon: Abelardo Yarbrough Procedure Notes Procedure in detail: Surgeon: Abelardo Yarbrough MD Anesthesia: Suzette Erasto DO Procedure in detail: A timeout was performed. A bite blocked was placed and monitors were attached to the patient. The patient was positioned in the left lateral decubitus position. Sedation was administered. Once the patient was sedated the endoscope was inserted through the bite block and passed through the esophagus and stomach and into the duodenum. No abnormalities were seen in the duodenal. The scope was withdrawn into the stomach and antritis was noted. Biopsies were taken from the antrum with the cold forceps. There were also multiple polypoid lesions in the distal stomach or proximal antrum and one of these was biopsied with the cold forceps. The endoscope was retroflexed and some gastritis was noted in the fundus and biopsies were taken with the forceps. No hiatal hernia was noted. The endoscope was straightned and withdrawn into the esophagus. No esophagitis was noted. EGD findings: Antritis, polypoid lesions in the distal stomach and gastritis in the fundus Next we repositioned the patient for a colonoscopy. A digital rectal exam was performed and was normal. The colonoscope was inserted and advanced to the cecum. The appendiceal orifice was identified and photographed. The scope was slowly withdrawn over greater than 6 minutes. There was a 5 mm polyp in the sigmoid colon and a 5 mm polyp in the rectum both removed with a cold snare. The scope was retroflexed in the rectum and internal hemorrhoids were noted. Colonoscopy findings: 5 mm polyp in the sigmoid colon, 5 mm polyp in the rectum and mild internal hemorrhoids Total procedural EBL: 5 mL Scope withdrawal time: 9 minutes Sedation minutes: 27 minutes Post-procedure Disposition: PACU
[2023-10-24 14:00] VITALS: BP 137/88; PULSE 83; RESP 13; TEMP 36.2; O2SAT 100
[2023-10-24 14:05] VITALS: BP 119/82; PULSE 84; RESP 11; O2SAT 97
[2023-10-24 14:10] VITALS: BP 132/85; PULSE 76; RESP 15; O2SAT 95
[2023-10-24 14:23] VITALS: BP 132/85; PULSE 76; RESP 16; O2SAT 98
== END 2023-10-24 14:27 | disposition home or self-care (01) ==
PROVIDERS: PCP Family Medicine; Referring Provider Surgery; Visit Provider Surgery
PROC: 0DJ08ZZ Inspection of Upper Intestinal Tract, Via Natural or Artificial Opening Endoscopic (ICD-10-PCS; CPT 45385; principal; 2023-10-24 13:00)
PROC: 0DJD8ZZ Inspection of Lower Intestinal Tract, Via Natural or Artificial Opening Endoscopic (ICD-10-PCS; CPT 45378; 2023-10-24 13:00)
DX: K92.1 Melena (principal); K64.8 Other hemorrhoids; R13.10 Dysphagia, unspecified; K29.50 Unspecified chronic gastritis without bleeding; K63.5 Polyp of colon; K62.1 Rectal polyp
CPT/HCPCS: 45385; 43239; J2704

== ENCOUNTER → 2024-02-16 16:33 | Outpatient (CLI) | payer OTHER, MEDICAID, SELFPAY ==
[2022-12-10 12:12] VITALS: BMI 35.3
--- NOTE | 2024-02-16 16:35 | DI.MRI.S_ITS ---
PROCEDURE: MR LUMBAR SPINE WO CON INDICATIONS: CHRONIC MIDLINE LBP W/BILATERAL SCIATICA TECHNIQUE: Noncontrast sagittal T1 spin echo and T2 fast echo, sagittal STIR, and T2 fast spin echo through the lumbar spine. In cases with scoliosis, additional coronal T2 fast spin echo may be performed. COMPARISON: [facility], CT, CT ABDOMEN PELVIS W CON, 04/27/2023, 15:35. [facility], CR, XR LUMBAR SPINE MIN 4V, 11/30/2022, 9:01. [facility], MR, MR LUMBAR SPINE WO CON, 10/26/2022, 15:34. FINDINGS: Image quality: Excellent. Alignment and Curvature: There is normal bony alignment. Bone Marrow: Marrow is of normal overall signal. No acute vertebral body compression fractures. Spinal Cord: Conus medullaris terminates at the T12-L1 level. Visualized cord demonstrates normal signal and size. Paraspinous Soft Tissues: No paravertebral masses. T12-L1: Normal appearance. L1-L2: The disc height and disk signal are relatively well-preserved. Mild generalized disc bulge is seen. No neural foraminal narrowing or central canal narrowing can be seen. L2-L3: The disc height and disk signal are relatively well-preserved. Mild to moderate disc bulge is seen, which is eccentric to the right. Mild facet joint hypertrophy is seen. There is moderate right-sided and no left-sided neural foraminal narrowing. No significant central canal narrowing is seen. There is mild progression compared to the prior. L3-L4: Mild loss of disc height is seen. Loss of disc signal is seen. Moderate generalized disc bulge is seen. There is a superimposed central disc protrusion. Moderate facet joint hypertrophy is seen. There is moderate bilateral neural foraminal narrowing, left worse than right. Mild central canal narrowing is seen. There is slight progression compared to the prior. L4-L5: The disc height is well-preserved. Loss of disc signal is seen at this level. Mild to moderate disc bulge is seen, which is eccentric to the right. There is moderate right-sided and [id number] left-sided facet hypertrophy. There is moderate right-sided and minimal left-sided neural foraminal narrowing. No significant central canal narrowing is seen. When comparison is made with the prior images, these findings are similar. L5-S1: Mild facet joint hypertrophy is seen. No significant neural foraminal or central canal narrowing can be seen. When comparison is made with the prior images, these findings are similar. IMPRESSION: Multiple levels of lumbar spine degenerative change can be seen, which are slightly progressed at L2-L3 and L3-L4 compared to the 2022 examination. Dictated by: Charles Serra M.D. on 02/16/2024 at 16:29 Approved by: Charles Serra M.D. on 02/16/2024 at 16:33
== END ==
PROVIDERS: PCP Family Medicine; Referring Provider Physician Assistant; Visit Provider Physician Assistant
DX: M47.816 Spondylosis without myelopathy or radiculopathy, lumbar region (principal); M47.817 Spondylosis without myelopathy or radiculopathy, lumbosacral region; M54.41 Lumbago with sciatica, right side; M54.42 Lumbago with sciatica, left side; G89.29 Other chronic pain
CPT/HCPCS: 72148

== ENCOUNTER → 2024-02-18 10:14 | Outpatient (CLI) | payer OTHER, MEDICAID, SELFPAY ==
[2022-12-10 12:12] VITALS: BMI 35.3
[2024-02-18 12:33] LABS: Add Manual Diff / Slide Review NO; Basophils Absolute Auto 0 /uL (0-100); Basophils Percent Auto 0.3 % (0-2); Eosinophils Absolute Auto 100 /uL (0-450); Eosinophils Percent Auto 1.7 % (2-4); Hematocrit 37.9 % (36-46); Hemoglobin 12.9 g/dL (12.0-16.0); Lymphocytes Absolute Auto 2200 /uL (1100-4500); Lymphocytes Percent Auto 29.7 % (25-40); Mean Corpuscular HGB Conc 34.2 % (30-36); Mean Corpuscular Hemoglobin 29.5 PG (26-34); Mean Corpuscular Volume 86.2 fL (80-100); Monocytes Absolute Auto 600 /uL (0-900); Monocytes Percent Auto 8.8 % (3-14); Neutrophils Absolute Auto 4300 /uL (1500-7000); Neutrophils Percent Auto 59.5 % (50-75); Platelet Count 283 X10^3/uL (150-400); Red Blood Cell Count 4.39 X10^6/uL (4.0-5.2); Red Cell Distribution Width 13.9 % (11.6-14.8); White Blood Cell Count 7.3 X10^3/uL (4.5-11.0)
[2024-02-18 12:40] LABS: Hemoglobin A1C% w Est Avg Glu 6.8 % (4.0-6.0)
[2024-02-18 12:56] LABS: Creatinine Urine Random 134.68 mg/dL
[2024-02-18 12:58] LABS: Alanine Aminotransferase 41 IU/L (<35); Albumin 4.5 g/dL (3.5-5.0); Albumin Globulin Ratio 1.6 (1.0-2.8); Alkaline Phosphatase 61 U/L (38-126); Aspartate Aminotransferase 27 IU/L (14-36); BUN Creatinine Ratio 19.2 (6-22); Bilirubin Total 0.4 mg/dL (0.2-1.3); Blood Urea Nitrogen 15 mg/dL (7-17); Calcium 9.8 mg/dL (8.4-10.2); Carbon Dioxide 30 mmol/L (22-32); Chloride 100 mmol/L (98-107); Estimated Glomerular Filt Rate > 60 mL/min (>60); Globulin 2.9 g/dL (1.7-4.1); Glucose 143 mg/dL (70-100); HEMOLYSIS < 15 (0-50); Potassium 4.6 mmol/L (3.4-5.1); Sodium 136 mmol/L (137-145); Total Protein 7.4 g/dL (6.3-8.2)
[2024-02-18 13:01] LABS: Microalbumin Urine Random 1.1 mg/dL (0-1.6)
== END ==
PROVIDERS: PCP Family Medicine; Referring Provider Physician Assistant; Visit Provider Physician Assistant
DX: E11.42 Type 2 diabetes mellitus with diabetic polyneuropathy (principal)
CPT/HCPCS: 36415; 80053; 82043; 82570; 83036; 85025

== ENCOUNTER → 2024-03-13 17:07 | Outpatient (CLI) | payer OTHER, MEDICAID, SELFPAY ==
[2022-12-10 12:12] VITALS: BMI 35.3
[2024-03-13 18:09] LABS: Add Manual Diff / Slide Review NO; Basophils Absolute Auto 100 /uL (0-100); Basophils Percent Auto 0.6 % (0-2); Eosinophils Absolute Auto 100 /uL (0-450); Eosinophils Percent Auto 1.3 % (2-4); Hemoglobin 12.6 g/dL (12.0-16.0); Lymphocytes Absolute Auto 2900 /uL (1100-4500); Lymphocytes Percent Auto 36.1 % (25-40); Mean Corpuscular HGB Conc 33.2 % (30-36); Mean Corpuscular Hemoglobin 29.1 PG (26-34); Mean Corpuscular Volume 87.6 fL (80-100); Monocytes Absolute Auto 700 /uL (0-900); Monocytes Percent Auto 8.3 % (3-14); Neutrophils Absolute Auto 4400 /uL (1500-7000); Neutrophils Percent Auto 53.7 % (50-75); Platelet Count 293 X10^3/uL (150-400); Red Blood Cell Count 4.34 X10^6/uL (4.0-5.2); Red Cell Distribution Width 13.8 % (11.6-14.8); White Blood Cell Count 8.1 X10^3/uL (4.5-11.0)
[2024-03-13 18:15] LABS: Hemoglobin A1C% w Est Avg Glu 7.2 % (4.0-6.0)
[2024-03-13 18:28] LABS: HEMOLYSIS < 15 (0-50); Iron 52 ug/dL (37-170)
[2024-03-13 18:32] LABS: Alanine Aminotransferase 39 IU/L (<35); Albumin 4.6 g/dL (3.5-5.0); Albumin Globulin Ratio 1.4 (1.0-2.8); Alkaline Phosphatase 62 U/L (38-126); Aspartate Aminotransferase 26 IU/L (14-36); BUN Creatinine Ratio 22.2 (6-22); Bilirubin Total 0.3 mg/dL (0.2-1.3); Blood Urea Nitrogen 18 mg/dL (7-17); C-Reactive Protein Quant < 0.5 mg/dL (<1.0); Calcium 9.9 mg/dL (8.4-10.2); Carbon Dioxide 29 mmol/L (22-32); Chloride 99 mmol/L (98-107); Creatine Kinase 65 U/L (30-135); Estimated Glomerular Filt Rate > 60 mL/min (>60); Globulin 3.2 g/dL (1.7-4.1); Glucose 138 mg/dL (70-100); HEMOLYSIS < 15 (0-50); Potassium 3.8 mmol/L (3.4-5.1); Sodium 137 mmol/L (137-145); Total Protein 7.8 g/dL (6.3-8.2)
[2024-03-13 18:39] LABS: Percent Iron Saturation 16 % (15-50); Total Iron Binding Capacity 329 ug/dL (265-497); Transferrin 283 mg/dL (206-381)
[2024-03-13 19:02] LABS: Ferritin 17 ng/mL (11-264)
[2024-03-13 19:14] LABS: Hepatitis B Surface Antigen NEGATIVE s/c (NEGATIVE)
[2024-03-13 19:22] LABS: Hep C Virus Ab w/Reflex Quant NEGATIVE s/c (NEGATIVE)
[2024-03-15 00:12] LABS: Hepatitis B Core Antibody Negative (Negative)
[2024-03-15 00:36] LABS: Hepatitis B Surf AB Quant 16.6 mIU/mL (Immunity>10)
== END ==
LOC: LAB 17:12
PROVIDERS: PCP Family Medicine; Referring Provider Physician Assistant; Visit Provider Physician Assistant
DX: M25.50 Pain in unspecified joint (principal); M25.60 Stiffness of unspecified joint, not elsewhere classified; R79.89 Other specified abnormal findings of blood chemistry; R53.83 Other fatigue; E11.42 Type 2 diabetes mellitus with diabetic polyneuropathy
CPT/HCPCS: 36415; 80053; 82043; 82550; 82570; 82728; 83036; 83540; 83550; 84443; 85025; 86140; 86704; 86706; 86803; 87340

== ENCOUNTER → 2024-04-16 08:24 | Outpatient (CLI) | payer OTHER, MEDICAID, SELFPAY ==
[2022-12-10 12:12] VITALS: BMI 35.3
--- NOTE | 2024-04-16 | DI.US.S_ITS ---
PROCEDURE: US ABDOMEN LIMITED INDICATIONS: LFT ELEVATION TECHNIQUE: Real-time scanning was performed of the abdominal and retroperitoneal organs, with image documentation. COMPARISON: [facility], US, US ABDOMEN COMPLETE, 09/06/2023, 10:38. FINDINGS: Liver: Liver is normal in size. Increased liver parenchymal echotexture is seen. No discrete hepatic lesion. Normal hepatopetal flow is seen in patent main portal vein. Gallbladder: There is no gallstone. No gallbladder wall thickening or pericholecystic fluid. No sonographic Fatima sign. Biliary ducts: Intrahepatic bile ducts are non-dilated. Extrahepatic bile duct caliber measures 4.8 mm. Normal is 6-7 mm or less in diameter, or 10 mm or less post-cholecystectomy. Pancreas: Visualized portions of the pancreas are sonographically normal. Miscellaneous: No free abdominal fluid. IMPRESSION: 1. Hepatic steatosis, no discrete hepatic lesion. 2. Normal appearing gallbladder. No biliary ductal dilatation. Normal appearing pancreas. Dictated by: Heath Alatorre M.D. on 04/16/2024 at 13:16 Approved by: Heath Alatorre M.D. on 04/16/2024 at 13:17
== END ==
LOC: US 08:25
PROVIDERS: PCP Physician Assistant; Referring Provider Physician Assistant; Visit Provider Physician Assistant
DX: K76.0 Fatty (change of) liver, not elsewhere classified (principal); R79.89 Other specified abnormal findings of blood chemistry
CPT/HCPCS: 76705

== ENCOUNTER → 2024-09-26 13:59 | Outpatient (CLI) | payer OTHER, SELFPAY ==
[2022-12-10 12:12] VITALS: BMI 35.3
[2024-09-26 14:57] LABS: Add Manual Diff / Slide Review NO; Basophils Absolute Auto 0 /uL (0-100); Basophils Percent Auto 0.4 % (0-2); Eosinophils Absolute Auto 200 /uL (0-450); Eosinophils Percent Auto 1.7 % (2-4); Hematocrit 37.4 % (36-46); Hemoglobin 12.5 g/dL (12.0-16.0); Lymphocytes Absolute Auto 2500 /uL (1100-4500); Lymphocytes Percent Auto 28.4 % (25-40); Mean Corpuscular HGB Conc 33.4 % (30-36); Mean Corpuscular Hemoglobin 29.3 PG (26-34); Mean Corpuscular Volume 87.6 fL (80-100); Monocytes Absolute Auto 700 /uL (0-900); Monocytes Percent Auto 8.1 % (3-14); Neutrophils Absolute Auto 5500 /uL (1500-7000); Neutrophils Percent Auto 61.4 % (50-75); Platelet Count 293 X10^3/uL (150-400); Red Blood Cell Count 4.27 X10^6/uL (4.0-5.2); Red Cell Distribution Width 13.1 % (11.6-14.8)
[2024-09-26 15:06] LABS: Appearance Urine UA CLEAR; Bilirubin Urine UA NEGATIVE (NEGATIVE); Color Urine UA YELLOW; Glucose Urine UA NEGATIVE (Negative); Ketones Urine UA NEGATIVE (NEGATIVE); Leukocyte Esterase Urine UA NEGATIVE (NEGATIVE); Nitrite Urine UA NEGATIVE (Negative); Occult Blood Urine UA NEGATIVE (Negative); Protein Urine UA NEGATIVE (Negative); Urobilinogen Urine UA 0.2 E.U./dL (0.2)
[2024-09-26 15:07] LABS: pH Urine UA 7.5 (4.5-8.0)
[2024-09-26 15:31] LABS: Bacteria Urine Occasional (0-1); RBC Urine None Seen (0-5/HPF); Squamous Epithelial Cell Urine 10-30 /HPF (0-5/HPF); Urine Volume 10mL (spun); WBC Urine None Seen (0-5/HPF)
[2024-09-26 15:32] LABS: Culture Indicated Urine Specimen Cultured
[2024-09-26 15:35] LABS: Alanine Aminotransferase 41 IU/L (<35); Albumin 4.7 g/dL (3.5-5.0); Albumin Globulin Ratio 1.7 (1.0-2.8); Alkaline Phosphatase 78 U/L (38-126); Aspartate Aminotransferase 30 IU/L (14-36); BUN Creatinine Ratio 24.2 (6-22); Bilirubin Total 0.3 mg/dL (0.2-1.3); Blood Urea Nitrogen 16 mg/dL (7-17); Calcium 9.8 mg/dL (8.4-10.2); Carbon Dioxide 24 mmol/L (22-32); Chloride 101 mmol/L (98-107); Estimated Glomerular Filt Rate > 60 mL/min (>60); Globulin 2.8 g/dL (1.7-4.1); Glucose 121 mg/dL (70-99); HEMOLYSIS < 15 (0-50); Potassium 4.4 mmol/L (3.4-5.1); Sodium 136 mmol/L (137-145); Total Protein 7.5 g/dL (6.3-8.2)
[2024-09-26 15:41] LABS: NT-proBNP (BNP-Adult 18+) 274 pg/mL (<125)
[2024-09-26 16:01] LABS: TSH w/ Reflex to FT4 2.67 uIU/mL (0.47-4.68)
== END ==
PROVIDERS: PCP Family Medicine; Referring Provider Family Medicine; Visit Provider Family Medicine
DX: I10 Essential (primary) hypertension (principal); E11.9 Type 2 diabetes mellitus without complications; E78.5 Hyperlipidemia, unspecified; R53.83 Other fatigue
CPT/HCPCS: 36415; 80053; 81001; 83036; 83880; 84443; 85025; 87086

== ENCOUNTER 2024-10-02 13:24 | Emergency (ER) | payer OTHER, SELFPAY ==
[2022-12-10 12:12] VITALS: BMI 35.3
[2024-10-02] VITALS (13 sets, daily range): BP systolic 132–160; BP diastolic 75–95; PULSE 80–90; RESP 12–25; TEMP 36.6; O2SAT 94–99
--- NOTE | 2024-10-02 13:37 | DI.RAD.S_ITS ---
PROCEDURE: XR CHEST 1V INDICATIONS: dyspnea TECHNIQUE: One view of the chest was acquired. COMPARISON: None. FINDINGS: Surgical changes and devices: None. Lungs and pleura: Lungs are clear. No pleural effusions or pneumothorax. Mediastinum: Mediastinal contours appear normal. Heart size is normal. Bones and chest wall: No suspicious bony lesions. Overlying soft tissues appear unremarkable. IMPRESSION: No acute cardiopulmonary abnormalities or focal consolidation. Dictated by: Sean Santiago M.D. on 10/02/2024 at 14:31 Approved by: Sean Santiago M.D. on 10/02/2024 at 14:31
--- NOTE | 2024-10-02 13:37 | EKG_ITS ---
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
[2024-10-02 14:20] LABS: Add Manual Diff / Slide Review NO; Basophils Absolute Auto 100 /uL (0-100); Basophils Percent Auto 0.9 % (0-2); Eosinophils Absolute Auto 100 /uL (0-450); Hematocrit 39.8 % (36-46); Hemoglobin 13.5 g/dL (12.0-16.0); Lymphocytes Absolute Auto 2800 /uL (1100-4500); Lymphocytes Percent Auto 28.5 % (25-40); Mean Corpuscular HGB Conc 33.9 % (30-36); Mean Corpuscular Hemoglobin 29.4 PG (26-34); Mean Corpuscular Volume 86.9 fL (80-100); Monocytes Absolute Auto 900 /uL (0-900); Monocytes Percent Auto 9.2 % (3-14); Neutrophils Absolute Auto 6000 /uL (1500-7000); Neutrophils Percent Auto 60.4 % (50-75); Platelet Count 303 X10^3/uL (150-400); Red Blood Cell Count 4.58 X10^6/uL (4.0-5.2); Red Cell Distribution Width 13.4 % (11.6-14.8); White Blood Cell Count 9.9 X10^3/uL (4.5-11.0)
[2024-10-02 14:31] LABS: D Dimer 341 ng/ml (<500)
[2024-10-02 14:33] LABS: Alanine Aminotransferase 44 IU/L (<35); Albumin Globulin Ratio 1.4 (1.0-2.8); Alkaline Phosphatase 79 U/L (38-126); Aspartate Aminotransferase 33 IU/L (14-36); Bilirubin Total 0.3 mg/dL (0.2-1.3); Blood Urea Nitrogen 21 mg/dL (7-17); Calcium 10.2 mg/dL (8.4-10.2); Carbon Dioxide 23 mmol/L (22-32); Chloride 99 mmol/L (98-107); Estimated Glomerular Filt Rate > 60 mL/min (>60); Globulin 3.7 g/dL (1.7-4.1); Glucose 108 mg/dL (70-99); HEMOLYSIS < 15 (0-50); Lipase 64 U/L (23-300); Potassium 4.4 mmol/L (3.4-5.1); Sodium 135 mmol/L (137-145); Total Protein 8.7 g/dL (6.3-8.2)
[2024-10-02 14:44] LABS: NT-proBNP (BNP-Adult 18+) < 20 pg/mL (<125); Troponin I < 0.012 ng/mL (0.01-0.034)
[2024-10-02 17:42] LABS: Troponin I < 0.012 ng/mL (0.01-0.034)
--- NOTE | 2024-10-02 18:24 | ED.GENADULT ---
HPI - General Adult General Chief complaint: Shortness of Breath/Dyspnea Stated complaint: SOB, chest pain Time Seen by Provider: 10/02/24 13:25 Source: patient Mode of arrival: Ambulatory History of Present Illness HPI narrative: 53-year-old woman with a history of diabetes, anxiety, migraines, hyperlipidemia, depression presents today complaining of shortness of breath chest tightness with a sense that her heart has been racing since last night. This was associated with some nausea that did not improve with Zofran taken at home. She also notes some mild diarrhea and bright red blood associated with bowel movements. She has a history of hemorrhoids. The diarrhea and the red blood per rectum have completely resolved. Patient was recently seen by her primary care physician and has not echocardiogram scheduled for tomorrow for further evaluation of her dyspnea Related Data Home Medications Medication Instructions Recorded Confirmed multivitamin 1 tab PO DAILY 11/30/22 09/26/24 omega 5-jjs-vqy-fish oil 60 mg-90 1 cap PO DAILY 11/30/22 09/26/24 mg-500 mg capsule (Fish Oil) vit D3 50 mcg-vitamin K1 500 1 cap PO DAILY deficiency 11/30/22 09/26/24 mcg-MK4 1,500 mcg-MK7 180 mcg capsule Previous Rx's Medication Instructions Recorded amitriptyline 25 mg tablet 25 mg PO BID #180 tabs 08/22/23 pioglitazone 15 mg tablet 15 mg PO DAILY #90 tabs 11/01/23 rosuvastatin 5 mg tablet (Crestor) 5 mg PO DAILY #90 tabs 01/03/24 esomeprazole magnesium 40 mg 40 mg PO DAILY #90 caps 07/09/24 capsule,delayed release (Nexium) tirzepatide 2.5 mg/0.5 mL 2.5 mg (0.5 mL) SUBCUT QWEEK #2 mL 07/11/24 subcutaneous pen injector (Mounjaro) propranolol 20 mg tablet 20 mg PO BID #180 tabs 07/12/24 sertraline 100 mg tablet 100 mg PO DAILY #90 tabs 07/25/24 metformin 500 mg tablet 1,000 mg (2 x 500 mg) PO BID 08/28/24 Diabetes 90 days #360 tabs ondansetron 8 mg disintegrating 8 mg PO Q12H PRN nausea and 08/28/24 tablet vomiting #30 tabs rizatriptan 10 mg tablet (Maxalt) See Rx Instructions PO .COMPLEX 08/28/24 PRN Migraine Headache #20 tabs triamterene 37.5 1 cap PO DAILY #90 caps 09/26/24 mg-hydrochlorothiazide 25 mg capsule Allergies Allergy/AdvReac Type Severity Reaction Status Date / Time semaglutide [From Ozempic] Allergy Mild Nausea Verified 09/26/24 13:15 Review of Systems Review of Systems Narrative: Pertinent positive and negative findings as per HPI Patient History Medical History Steatosis of liver Leg edema Fatigue Multiple atypical nevi Lumbar spondylosis Diabetes (~2019) Thoracic back pain Myofascial pain Diabetic peripheral neuropathy Right arm pain Dorsalgia Cervicalgia Fibromyalgia History of tobacco use History of stress incontinence Prolapse of female pelvic organs Preventative health care Cystocele Lupus Essential tremor Family history of breast cancer Hypertension Depression Migraine aura occurring with and without headache Seasonal allergic rhinitis Hyperlipidemia Type 2 diabetes mellitus Surgical History History of hysterectomy for benign disease Social History household members: family Smoking Status: Never smoker alcohol intake: never Smoking Status: Never smoker Exam Initial Vital Signs Initial Vital Signs: Vital Signs Temperature 97.8 F 10/02/24 13:30 Pulse Rate 84 10/02/24 13:30 Respiratory Rate 18 10/02/24 13:30 Blood Pressure 160/95 H 10/02/24 13:30 Pulse Oximetry 99 10/02/24 13:30 Oxygen Delivery Method Room Air 10/02/24 13:30 General: Healthy appearing, in no acute distress. Able to give a complete and coherent history. Well-nourished well-developed HEENT: Moist mucous membranes, normal sclera with reactive pupils, Respiratory: Lungs are clear to auscultation, no wheezing no rales no rhonchi. Full and symmetrical air movement Cardiac: Regular rate and rhythm no murmurs no bruits Abdomen: Soft, nontender, no rebound or guarding, no flank pain Skin: Warm and dry, no rashes Neurologic: Grossly neurologically intact with no obvious asymmetries or abnormalities Extremities: No trauma, well perfused Psych: Cooperative, appropriate insight and affect Course Orders Ordered: ED Orders 10/02/24 13:37 XR chest 1V Stat EKG-12 Lead Stat 10/02/24 14:10 Complete Blood Count AUTO DIFF Stat Comprehensive Metabolic Panel Stat D Dimer Stat Lipase Stat NT-proBNP (BNP-Adult 18+) Stat Troponin I Stat 10/02/24 17:12 Trop I [Troponin I] Stat Vital Signs Vital signs: Vital Signs - 8 hr 10/02/24 13:30 10/02/24 13:51 10/02/24 14:00 Temperature 97.8 F Pulse Rate 84 81 84 Respiratory Rate 18 Blood Pressure 160/95 H Pulse Oximetry 99 95 95 Oxygen Delivery Method Room Air Room Air 10/02/24 14:30 10/02/24 15:00 10/02/24 15:30 Temperature Pulse Rate 82 80 83 Respiratory Rate 22 25 H 20 Blood Pressure Pulse Oximetry 94 95 96 Oxygen Delivery Method 10/02/24 16:00 Temperature Pulse Rate 82 Respiratory Rate 12 Blood Pressure Pulse Oximetry 94 Oxygen Delivery Method Medical Decision Making Lab Data 10/02/24 14:10 10/02/24 14:10 Labs: Lab Results 10/02/24 10/02/24 Range/Units 14:10 17:12 WBC 9.9 (4.5-11.0) X10^3/uL RBC 4.58 (4.0-5.2) X10^6/uL Hgb 13.5 (12.0-16.0) g/dL Hct 39.8 (36-46) % MCV 86.9 (80-100) fL MCH 29.4 (26-34) PG MCHC 33.9 (30-36) % RDW 13.4 (11.6-14.8) % Plt Count 303 (150-400) X10^3/uL Neut % (Auto) 60.4 (50-75) % Lymph % (Auto) 28.5 (25-40) % Maverick % (Auto) 9.2 (3-14) % Eos % (Auto) 1.0 L (2-4) % Baso % (Auto) 0.9 (0-2) % Neut # (Auto) 6000 (8135-5743) /uL Lymph # (Auto) 2800 (2805-6416) /uL Maverick # (Auto) 900 (0-900) /uL Eos # (Auto) 100 (0-450) /uL Baso # (Auto) 100 (0-100) /uL D-Dimer 341 (<500) ng/ml Sodium 135 L (137-145) mmol/L Potassium 4.4 (3.4-5.1) mmol/L Chloride 99 (98-107) mmol/L Carbon Dioxide 23 (22-32) mmol/L BUN 21 H (7-17) mg/dL Creatinine 1.00 (0.52-1.04) mg/dL Estimated GFR > 60 (>60) mL/min BUN/Creatinine Ratio 21.0 (6-22) Glucose 108 H (70-99) mg/dL Calcium 10.2 (8.4-10.2) mg/dL Total Bilirubin 0.3 (0.2-1.3) mg/dL AST 33 (14-36) IU/L ALT 44 H (<35) IU/L Alkaline Phosphatase 79 (38-126) U/L Troponin I < 0.012 < 0.012 (0.01-0.034) ng/mL NT-Pro-B Natriuret Pep < 20 (<125) pg/mL Total Protein 8.7 H (6.3-8.2) g/dL Albumin 5.0 (3.5-5.0) g/dL Globulin 3.7 (1.7-4.1) g/dL Albumin/Globulin Ratio 1.4 (1.0-2.8) Lipase 64 (23-300) U/L MDM Narrative Medical decision making narrative: 53-year-old woman presents with acute onset of shortness of breath and chest tightness across her upper chest that has been present for a couple of hours. She describes racing heart rate yesterday and overall increasing dyspnea. She has been seen by a primary care physician for this and does have an echocardiogram scheduled tomorrow. differential includes acute coronary syndrome, congestive heart failure, asthma exacerbation, paroxysmal atrial fibrillation. Exam is benign at this time. With lab evaluation, 1st and 2nd troponins were unremarkable chemistries were otherwise reassuring CBC does not show leukocytosis or anemia chest x-ray is unremarkable EKG shows sinus rhythm at a rate of 79 with no acute ischemic change on re-evaluation patient is feeling much better. No longer dyspneic, chest tightness has resolved without further intervention on my part. Patient will be discharged to home, at this point there is no evidence of acute coronary syndrome, pneumothorax, infection, no suggestion for pulmonary embolism given her complete resolution of symptoms lack of documented tachycardia and normal oxygen saturations. Have suggested that she continue with all of her usual medications and continue with follow up as scheduled by her primary care physician. Questions are answered there was no indication for hospitalization or additional workup at this time. She is safe for discharge Discharge Plan Departure Patient Disposition: Home Clinical Impression: Acute dyspnea, Atypical chest pain Instructions: DI for Shortness of Breath Activity Restrictions/Additional Instructions: thank you for coming in today I did not find any life-threatening explanation for your chest pain or your dyspnea. There was no evidence of acute heart attack, acute congestive heart failure, significant anemia, infection, collapsed lung or other explanation for your symptoms today. Please do continue all of your usual medications as they do seem to be working. Please keep all of your scheduled outpatient appointments. If you find that you are getting worse or you do develop new symptoms, please feel free to return to the ER for further evaluation Prescriptions: No Action amitriptyline 25 mg tablet 25 mg PO BID Qty: 180 3RF pioglitazone 15 mg tablet 15 mg PO DAILY Qty: 90 3RF rosuvastatin [Crestor] 5 mg tablet 5 mg PO DAILY Qty: 90 3RF esomeprazole magnesium [Nexium] 40 mg capsule,delayed release(DR/EC) 40 mg PO DAILY MDD 40mg Qty: 90 3RF Rx Instructions: Take one capsule by mouth daily Mounjaro 2.5 mg/0.5 mL pen injector 2.5 mg SUBCUT QWEEK Qty: 2 2RF Rx Instructions: for 4 weeks propranolol 20 mg tablet 20 mg PO BID Qty: 180 3RF metformin 500 mg tablet 1,000 mg PO BID 90 Days Qty: 360 3RF ondansetron 8 mg tablet,disintegrating 8 mg PO Q12H PRN (Reason: nausea and vomiting) Qty: 30 3RF rizatriptan [Maxalt] 10 mg tablet See Rx Instructions PO .COMPLEX PRN (Reason: Migraine Headache) Qty: 20 2RF Rx Instructions: take 1 tab at onset of headache; if no relief may repeat 1 tab after at least 2 hrs; max = 3 tabs/24 hr PO sertraline 100 mg tablet 100 mg PO DAILY Qty: 90 3RF Rx Instructions: Half a tablet per day for the 1st 6 days then 1 tablet per day triamterene-hydrochlorothiazid 37.5-25 mg capsule 1 cap PO DAILY Qty: 90 1RF vitamin D3-vit K1-vit MK4-MK7 50-500-1,500 mcg capsule 1 cap PO DAILY Patient Comments: otc omega 3-vpu-fxa-fish oil [Fish Oil] 60-90-500 mg capsule 1 cap PO DAILY multivitamin Tablet 1 tab PO DAILY Referrals: Wander Salcedo, [Primary Care Provider] - Stand Alone Forms: Patient Portal/API/Survey
== END 2024-10-02 18:40 | disposition home or self-care (01) ==
PROVIDERS: Emergency Provider Emergency Medicine; PCP Family Medicine
DX: R06.00 Dyspnea, unspecified (principal); R07.89 Other chest pain
CPT/HCPCS: 36415; 71045; 80053; 83690; 83880; 84484; 85025; 85379; 93005; 99283; 99284

== ENCOUNTER → 2024-10-03 09:10 | Outpatient (CLI) | payer OTHER, SELFPAY ==
[2022-12-10 12:12] VITALS: BMI 35.3
--- NOTE | 2024-10-03 09:11 | DI.ECHO.S_ITS ---
[facility]---------+ [facility] : : [address] : : [place] : : [id number] : : Phone: [phone] Echocardiogram Report + + :Name: SPARKLE GLASS Study Date: 10/03/2024 Height: 62 in : :Hospital ReadingLocation: Weight: 198 lb : : Gender: Female BSA: 1.9 m2 : :: 1970 Age: 53 yrs BP: 136/98 mmHg: :Reason For Study: PROGRESSIVE EJECTION FRACTION : :Ordering Physician: MARTÍN, : :RAYO Performed By: Susan Thompson : :Referring: RAYO RESENDIZ : + + Interpretation Summary The study quality was technically difficult. The left ventricle is normal in size and wall thickness. The left ventricular ejection fraction is normal. The ejection fraction is estimated to be 65-70%. The right ventricle is normal in size and function. All the valves were not well-visualized however overall no significant valvular pathology seen. Procedure: A two-dimensional transthoracic echocardiogram with color flow and Doppler was performed. There is no prior echocardiogram noted for this patient. The study quality was technically difficult. The patient was in sinus rhythm with heart rates between 80-93 bpm during the exam. Left Ventricle: The left ventricle is normal in size and wall thickness. There is no thrombus. The ejection fraction is estimated to be 65-70%. The left ventricular ejection fraction is normal. There are no focal wall motion abnormalities. MV E/A: 1.1 Med Peak E' Michael: 6.3 cm/sec E/E' med: 12.5. Right Ventricle: The right ventricle is normal in size and function. Atria: The left atrial size is normal. Right atrial size is normal. There is no Doppler evidence for an interatrial shunt. Mitral Valve: The mitral valve leaflets appear to open well. There is mild mitral annular calcification. There is no mitral valve stenosis. There is trace mitral regurgitation. Aortic Valve: The aortic valve is not well visualized. There is no aortic valve stenosis. No aortic regurgitation is present. Tricuspid Valve: The tricuspid valve is not well visualized, but is grossly normal. There is trace tricuspid regurgitation. Pulmonary artery pressures cannot be estimated because of the lack of a measurable TR jet velocity. Pulmonic Valve: The pulmonic valve is not well visualized. There is no pulmonic valvular regurgitation. Great Vessels: The aortic root is normal size. The dimensions of the ascending aorta are normal. The inferior vena cava was not well visualized. Pericardium/ Pleura There is no pericardial effusion. There is an anterior echo-free space consistent with a fat pad. There is no pleural effusion. MMode/2D Measurements & Calculations LVIDd: 4.5 cm LVOT diam: 2.0 cm LVIDs: 3.1 cm Ao root diam: 2.7 cm FS: 32.2 % asc Aorta Diam: 2.7 cm IVSd: 0.93 cm Ao Arch Diam (Prox Trans): 2.6 cm LVPWd: 0.75 cm LV kaur. diameter/BSA (cm/m^2): 2.4 LV sys. diameter/BSA (cm/m^2): 1.6 LA A2 area: 11.0 cm2 RA long axis: 4.3 cm LA A4 area: 11.6 cm2 RA area: 10.8 cm2 LA length (vol): 4.1 cm RA vol: 22.8 ml LA vol: 26.6 ml RA : 12.0 ml/m2 LA vol index: 14.0 ml/m2 RVD1 (basal): 3.0 cm TAPSE: 1.6 cm Doppler Measurements & Calculations Ao V2 max: 131.6 cm/sec LVOT Max Michael: 120.6 cm/sec Ao V2 mean: 88.8 cm/sec LV V1 max P.8 mmHg Ao max P.9 mmHg LV V1 VTI: 20.0 cm Ao mean P.5 mmHg ENEIDA(I,D): 2.8 cm2 Ao V2 VTI: 23.3 cm ENEIDA(V,D): 2.9 cm2 sev ratio: 0.86 ENEIDA indexed to BSA (cm^2/m^2): 1.4 MV E max michael: 79.4 cm/sec PA V2 max: 86.4 cm/sec MV A max michael: 73.3 cm/sec PA V2 mean: 62.4 cm/sec MV E/A: 1.1 PA mean P.7 mmHg Med Peak E' Michael: 6.3 cm/sec PA pr(Accel): 37.9 mmHg E/E' med: 12.5 Lat Peak E' Michael: 9.9 cm/sec E/E' lat: 8.1 E/e' average: 10.3 MV dec time: 0.18 sec SV(LVOT): 64.2 ml Reading Physician:11:14 AM
== END ==
PROVIDERS: PCP Family Medicine; Referring Provider Family Medicine; Visit Provider Family Medicine
DX: I34.81 Nonrheumatic mitral (valve) annulus calcification (principal); E11.9 Type 2 diabetes mellitus without complications; E78.5 Hyperlipidemia, unspecified; I10 Essential (primary) hypertension; R53.83 Other fatigue
CPT/HCPCS: 93306